=== PATIENT | male | born 1950 | race Caucasian/White ===

== ENCOUNTER 2021-01-28 05:33 | Outpatient (CLI) | payer MEDICARE, OTHER ==
[~2021-01-28] VITALS: Ht 175.3 cm; Wt 71.3 kg
[2021-01-29] MEDS ORDERED: VIT D PO (15:31)
[2021-01-29] MEDS ORDERED: EYE SUPPORT PO (15:31)
[2021-01-29] MEDS ORDERED: [UNRECOGNIZED DRUG - OTHER] PO (15:31)
[2021-01-29] MEDS ORDERED: CHOL500050 PO (15:31)
[2021-01-29] MEDS ORDERED: [UNRECOGNIZED DRUG - OTHER] PO (15:31)
[2021-01-29] MEDS ORDERED: CALC-803 PO (15:31)
[2021-01-29] MEDS ORDERED: [UNRECOGNIZED DRUG - OTHER] PO (15:31)
[2021-01-29] MEDS ORDERED: [UNRECOGNIZED DRUG - OTHER] PO (15:31)
[2021-01-29] MEDS ORDERED: LISI10TA25 PO (15:31)
[2021-01-29] MEDS ORDERED: [UNRECOGNIZED DRUG - OTHER] PO (15:31)
[2021-01-29] MEDS ORDERED: PROBIOTIC PO (15:31)
[2021-01-29] MEDS ORDERED: [UNRECOGNIZED DRUG - OTHER] PO (15:31)
[2021-01-29] MEDS ORDERED: [UNRECOGNIZED DRUG - OTHER] PO (15:31)
[2021-01-29] MEDS ORDERED: OMEGA PO (15:31)
[2021-01-29] MEDS ORDERED: TMSL.4C PO (15:39)
== END 2021-01-29 15:42 | disposition home or self-care (01) ==
LOC: PREOP 05:33
PROVIDERS: ATTEND Specialist
DX: Z01.818 Encounter for other preprocedural examination (principal)

== ENCOUNTER 2021-02-06 09:12 | Day surgery (SDC) | payer MEDICARE, OTHER ==
[~2021-02-06] VITALS: Ht 175.3 cm; Wt 71.3 kg
[2021-02-06] VITALS (11 sets, daily range): BP systolic 108–128; BP diastolic 65–94
[~2021-02-06 09:12] MED LIST: CALC-803 PO; CHOL500050 PO; EYE SUPPORT PO; LISI10TA25 PO; OMEGA PO; PROBIOTIC PO; TMSL.4C PO; VIT D PO; [UNRECOGNIZED DRUG - OTHER] PO; [UNRECOGNIZED DRUG - OTHER] PO; [UNRECOGNIZED DRUG - OTHER] PO; [UNRECOGNIZED DRUG - OTHER] PO; [UNRECOGNIZED DRUG - OTHER] PO; [UNRECOGNIZED DRUG - OTHER] PO; [UNRECOGNIZED DRUG - OTHER] PO
--- NOTE | 2021-02-06 09:22 | Progress Note-Pre Operative ---
Pre-Operative Progress Note H&P Reviewed The H&P was reviewed, patient examined and no changes noted. Date Seen by Provider: Feb 06, 2021 Time Seen by Provider: : Date H&P Reviewed: Feb 06, 2021 Time H&P Reviewed: :21 Pre-Operative Diagnosis: Prostate cancer cT2a, PSA 6.2, [place] 8 (4+4) JOAQUIN BARAKAT MD Feb 06, 2021 09:22
[2021-02-06] MEDS ORDERED: CIPR-226 PO ×2 (09:25)
[2021-02-06] MEDS ORDERED: ACET1TAB43 PO ×2 (09:25)
--- NOTE | 2021-02-06 09:30 | Discharge Inst-Simple/Standard ---
Discharge Inst-Standard Reconcile Patient Problems Problems Reviewed?: Yes Discharge Medications New, Converted or Re-Newed RX: Other (scripts has already been called to pharmacy in [place] 02/05) Patient Instructions/Follow Up Plan of Care/Instructions/FU: 1)Post implant ct scan at [facility] 03/06/21 at 11:00 a.m. 2)One month follow up with Dr. Veloz 03/06/21 at 1:30 p.m. Activity as Tolerated: Yes Discharge Diet: No Restrictions Other Inst to Patient Please instruct patient on galvez catheter care and self removal on Thursday02/11/21 in the morning. JOAQUIN BARAKAT MD Feb 06, 2021 09:30
[2021-02-06] MEDS ORDERED: BACITRACIN OINTMENT 28 GM TUBE ONE (09:51)
[2021-02-06] MEDS: LACTATED RINGERS 1,000 ML IV PRN ×2 (09:59→11:43)
[2021-02-06] MEDS ORDERED: LIDOCAINE PF 2% 5 ML (XYLOCAINE) VIAL ONE (10:51)
[2021-02-06] MEDS ORDERED: proPOfol 200 MG/20 ML (DIPRIVAN) VIAL IV ONE (10:51)
[2021-02-06] MEDS ORDERED: fentaNYL INJ 100 MCG/2 ML AMP ONE (10:51)
[2021-02-06] MEDS ORDERED: ONDANSETRON 4 MG/2 ML (SDV) Z0FRAN ONE (10:51)
[2021-02-06] MEDS ORDERED: SEVOFLURANE (ULTANE) 15 ML INHAL SOLN ONE ×2 (11:29→11:52)
[2021-02-06] MEDS ORDERED: PHENYLEPHRINE 100 MCG/ML 10 ML (ANESTHESIA) SYR ONE (11:36)
[2021-02-06] MEDS ORDERED: ONDANSETRON 4 MG/2 ML (SDV) Z0FRAN IVP PRN (12:15)
[2021-02-06] MEDS ORDERED: morphine INJ 10 MG/ML 1ML (SYR OR VIAL) IVP ONE (12:15)
--- NOTE | 2021-02-06 12:22 | Progress Note-Post Operative ---
Post-Operative Progess Note Surgeon (s)/Addiction Treatment Counselor (s) Surgeon JOAQUIN BARAKAT MD Addiction Treatment Counselor: Thuy KABA MD Pre-Operative Diagnosis Prostate cancer cT2a, PSA 6.2, [place] 8 (4+4) Post-Operative Diagnosis Same as pre op Procedure & Operative Findings Date of Procedure 02/06/21 Procedure Performed/Findings (1) 67% Cesium 131 permanent prostate seed implant (2) Injection of biodegradable hydrogel prostate-rectal spacer utilizing the [place] system (3) Cystogram Prostate volume 82.9 cc Anesthesia Type General Estimated Blood Loss Estimated blood loss (mL): Minimal Specimens/Packing Specimens Removed None Packing: None JOAQUIN BARAKAT MD Feb 06, 2021 12:22
--- NOTE | 2021-02-06 12:25 | Anesthesia-General Post-Op ---
General Patient Condition Mental Status/LOC: Same as Preop Cardiovascular: Satisfactory Nausea/Vomiting: Absent Respiratory: Satisfactory Pain: Controlled Complications: Absent Post Op Complications Complications None Follow Up Care/Instructions Patient Instructions None needed. Anesthesia/Patient Condition Patient Condition Patient is doing well, no complaints, stable vital signs, no apparent adverse anesthesia problems. ANNEL BEASLEY DO Feb 06, 2021 12:25
--- NOTE | 2021-02-06 12:58 | Diagnostic Imaging Report ---
INDICATION: Prostate cancer. TECHNIQUE: Single intraprocedural image of the prostate bed. FINDINGS/ IMPRESSION: The hospital radiology department provided fluoroscopic imaging in support of an interventional procedure. A radiologist was not present. Please reference the operating provider's procedure note. Fluoroscopy Time: 7.9 seconds. Dictated by: Dictated on workstation # [id number]
== END 2021-02-06 14:40 | disposition home or self-care (01) ==
LOC: SDC 09:12
PROVIDERS: ATTEND Radiology Radiation Oncology
DX: C61 Malignant neoplasm of prostate (principal); I10 Essential (primary) hypertension; E78.5 Hyperlipidemia, unspecified; E55.9 Vitamin D deficiency, unspecified; E78.00 Pure hypercholesterolemia, unspecified; F41.9 Anxiety disorder, unspecified; F32.9 Major depressive disorder, single episode, unspecified; Z80.0 Family history of malignant neoplasm of digestive organs; Z80.42 Family history of malignant neoplasm of prostate
CPT/HCPCS: 55874; 55876; 76000; 76965; 77290; 77318; 77332; 77370; 77470; 77778; 87081; C1715 ×2; C1889; C2643

== ENCOUNTER 2021-02-10 17:01 | Emergency (ER) | payer MEDICARE ==
[~2021-02-10] VITALS: Ht 175 cm; Wt 70.7 kg
[~2021-02-10 17:01] MED LIST changes: +ACET1TAB43 PO; +CIPR-226 PO
[2021-02-10 17:59] LABS: CLARITY,URINE CLOUDY; COLOR,URINE AMBER; GLUCOSE, URINE (UA) NEGATIVE (NEGATIVE); KETONES,URINE TRACE (NEGATIVE); LEUKOCYTE ESTERASE ,URINE TRACE (NEGATIVE); NITRITE,URINE NEGATIVE (NEGATIVE); PH,URINE 5.5 (5-9); PROTEIN,URINE 2+ (NEGATIVE)
[2021-02-10 18:07] LABS: BACTERIA,URINE TRACE /HPF; BILIRUBIN,URINE 1+ (NEGATIVE); RBC,URINE 50-100 /HPF
--- NOTE | 2021-02-10 18:28 | ED GU-Male ---
General Chief Complaint: Catheter/Drain/Tube Problems Stated Complaint: BURNING/LEAKAGE FROM CATHETER Nursing Triage Note: PT PRESENTS TO ED WITH COMPLAINTS OF BURNING AND LEAKING AROUND CATHETER. PT STATES PT HAD BRACHYTHERAPY THURSDAY AND SENT HOME WITH CATHETER. PT STARTED HAVING SOME DISCOMFORT THURSDAY MORNING. PT REPROTS CATHETER IS SUPPOSED TO BE REMOVED TOMORROW. Source: patient Exam Limitations: no limitations History of Present Illness Date Seen by Provider: Feb 10, 2021 Time Seen by Provider: 17:28 Initial Comments This is 70-year-old gentleman presents to the emergency room with complaints of pain and sense of urgency to urinate as well as leakage of bloody urine around his Bowen catheter after having had brachytherapy performed by Dr. Lassiter and Dr. Kaba on February 06. These symptoms started a couple of days ago after his believes she connected the catheter tubing incorrectly. She had it turned around in the catheter amount on his leg which caused tension on the catheter. The catheter is still draining but he is also having leakage around the catheter and out the meatus. His states this has been a significant amount. On exam there does not appear to be any active bleeding, inflammation, or leaking. His states she was instructed to pull the catheter herself tomorrow mo rning. Allergies and Home Medications Allergies Coded Allergies: No Known Drug Allergies (Unverified , 01/28/21) Patient Home Medication List Home Medication List Reviewed: Yes Acetaminophen with Codeine (Acetaminophen-Cod #3 Tablet) 1 Each Tablet, 1 EACH PO PRN PRN for PAIN-MODERATE (5-7) Prescribed by: JOAQUIN LASSITER on 02/06/21 09 Calcium Carb &Cit/Magnesium Ox (Calmag Thins Tablet) 1 Each Tablet, 1-2 EACH PO BID, (Reported) Entered as Reported by: GERSON SCOTT on 01/29/211530 Cholecalciferol (Vitamin D3) (Vitamin D3) 125 Mcg Capsule, 125 MCG PO DAILY, (Reported) Entered as Reported by: GERSON SCOTT on 01/29/211530 Ciprofloxacin HCl (Cipro) 250 Mg Tablet, 250 MG PO BID Prescribed by: JOAQUIN LASSITER on 02/06/21924 Lisinopril (Lisinopril) 10 Mg Tablet, 10 MG PO DAILY, (Reported) Entered as Reported by: GERSON SCOTT on 01/29/211530 Tamsulosin HCl (Flomax) 0.4 Mg Cap, 0.4 MG PO HS, (Reported) Entered as Reported by: GERSON SCOTT on 01/29/211538 [[place]-Immune] , 1 PKT PO DAILY, (Reported) Entered as Reported by: GERSON SCOTT on 01/29/211530 [Cardio Balance] , 1 CAP PO DAILY, (Reported) Entered as Reported by: GERSON SCOTT on 01/29/211530 [Curamed Brain] , 1 CAP PO DAILY, (Reported) Entered as Reported by: GERSON SCOTT on 01/29/211530 [Eye Support] , 1 CAP PO DAILY, (Reported) Entered as Reported by: GERSON SCOTT on 01/29/211530 [Gi Pre & Probiotic] , 1 PKT PO DAILY, (Reported) Entered as Reported by: GERSON SCOTT on 01/29/211530 [Glyco-Antioxidant] , 1 CAP PO DAILY, (Reported) Entered as Reported by: GERSON SCOTT on 01/29/211530 [Her/Amino Acid] , 1 CAP PO DAILY, (Reported) Entered as Reported by: GERSON SCOTT on 01/29/211530 [Nutri-Supp] , 1 PKT PO DAILY, (Reported) Entered as Reported by: GERSON SCOTT on 01/29/211530 [[place] 3 W/Vit D] , 1 CAP PO DAILY, (Reported) Entered as Reported by: GERSON SCOTT on 01/29/211530 Review of Systems Review of Systems Constitutional: no symptoms reported EENTM: no symptoms reported Respiratory: no symptoms reported Cardiovascular: no symptoms reported Gastrointestinal: no symptoms reported Genitourinary: see HPI Musculoskeletal: no symptoms reported Skin: no symptoms reported Psychiatric/Neurological: No Symptoms Reported Endocrine: No Symptoms Reported Hematologic/Lymphatic: No Symptoms Reported Past Yxosyrx-Osgxau-Cjzppz Hx Patient Social History Tobacco Use?: No Substance use?: No Alcohol Use?: No Pt feels they are or have been: No Immunizations Up To Date First/Initial COVID19 Vaccinat: JULY 26, 2020 Second COVID19 Vaccination Manuel: AUGUST 17, 2020 COVID19 Vaccine Emergency Response Technician: JACINTA Seasonal Allergies Seasonal Allergies: No Past Medical History Surgery/Hospitalization HX: PMH: HTN, PROSTATE CA SX: PROSTATE BIOPSY, BRACHYTHERAPY, HERNIA REPAIR. Surgeries: Yes (PROSTATE BIOPSY, COLONOSCOPY, INGUINAL HERNIA REPAIR, brachytherapy) Abdominal Respiratory: No Currently Using CPAP: No Currently Using BIPAP: No Cardiac: Yes High Cholesterol, Hypertension Neurological: Yes (FORGETFULLNESS, POSSIBLE DEMENTIA (?)) Genitourinary: Yes Benign Prostatic Hyperpl, Prostate Problems Gastrointestinal: No Musculoskeletal: No Endocrine: No HEENT: Yes (WEARS READING GLASSES) Loss of Vision: Denies Hearing Impairment: Denies Cancer: Yes (CURRENT) Prostate Did You Recieve Any Treatments: Yes What Type of Treatment Did You: Radiation (Brachytherapy) Psychosocial: Yes Anxiety Integumentary: No Blood Disorders: No Adverse Reaction/Blood Tranf: No (N/A) Physical Exam Vital Signs Vital Signs - First Documented 02/10/21 17:19 Temp 36.6 Pulse 96 Resp 18 B/P (MAP) 137/92 (107) Pulse Ox 99 Capillary Refill : Less Than 3 Seconds Height, Weight, BMI Height: '" Weight: lbs. oz. kg; 23.00 BMI Method: General Appearance: WD/WN, no apparent distress HEENT: normal ENT inspection Neck: normal inspection Cardiovascular: regular rate, rhythm, no edema, no murmur Respiratory: lungs clear, normal breath sounds, no respiratory distress Gastrointestinal: normal bowel sounds, non tender, soft; No distended Extremities: normal inspection, no pedal edema Neurologic/Psychiatric: no motor/sensory deficits, alert, normal mood/affect Skin: normal color, warm/dry Progress/Results/Core Measures Suspected Sepsis SIRS Temperature: Pulse: 96 Respiratory Rate: 18 Blood Pressure 137 /92 Mean: 107 Results/Orders Lab Results Laboratory Tests Test 02/10/21 17:55 Range/Units Urine Color [place] H Urine Clarity CLOUDY Urine pH 5.5 5-9 Urine Specific [place] >=1.030 1.016-1.022 Urine Protein 2+ H NEGATIVE Urine Glucose (UA) NEGATIVE NEGATIVE Urine Ketones TRACE H NEGATIVE Urine Nitrite NEGATIVE NEGATIVE Urine Bilirubin 1+ H NEGATIVE Urine Urobilinogen 0.2 < = 1.0 MG/DL Urine Leukocyte Esterase TRACE H NEGATIVE Urine RBC (Auto) 3+ H NEGATIVE Urine RBC 50-100 H /HPF Urine WBC 5-10 H /HPF Urine Squamous Epithelial Cells NONE /HPF Urine Crystals NONE /LPF Urine Bacteria TRACE /HPF Urine Casts NONE /LPF Urine Mucus NEGATIVE /LPF Urine Culture Indicated YES Micro Results Microbiology 02/10/21 Urine Culture - Final, Complete NO GROWTH My Orders Orders - BEAU VASQUEZ MD Ua Culture If Indicated (02/10/21 17:28) Urine Culture (02/10/21 17:55) Vital Signs/I&O 02/10/21 02/10/21 17:19 18:32 Temp 36.6 36.6 Pulse 96 96 Resp 18 18 B/P (MAP) 137/92 (107) 137/92 Pulse Ox 99 98 Capillary Refill : Less Than 3 Seconds Blood Pressure Mean: 107 Progress Note : Progress Note The situation was discussed with Dr. Kaba. He encouraged irrigation of the catheter. If no clots were noted and the catheter flushed well, he stated the catheter could be safely removed. The catheter was flushed twice with 60 mL of sterile saline with no difficulty. There was minimal blood associated with flushing of the catheter. Catheter was removed without complication. Uri nalysis demonstrated pyuria without significant bacteriuria. No antibiotics were prescribed. Treatment will be pending culture. Departure Impression Primary Impression: Bowen catheter problem Qualified Codes: T83.9XXA - Unspecified complication of genitourinary prosthetic device, implant and graft, initial encounter Additional Impression: Prostate cancer Disposition: HOME, SELF-CARE Condition: Improved Departure-Patient Inst. Decision time for Depature: 17:45 Referrals: MONTY RAMOS MD (PCP) Primary Care Physician Thuy KABA MD (Family) Primary Care Physician Patient Instructions: Brachytherapy Add. Discharge Instructions: Drink plenty of clear liquids and urinate often. You should drink enough liquids so that your urine is light yellow to clear in color. Otherwise follow postoperative instructions as provided after your brachytherapy. Follow-up with your urologist and primary care provider as previously instructed. Call with questions or concerns. Your urine will be cultured at this facility. If you do not hear results on your urine culture by Thursday, feel free to call to obtain the results. Return to the ER if you have urgent medical needs or concerns. All discharge instructions reviewed with patient and/or family. Voiced understanding. Copy Copies To 1: Thuy KABA MD; JOAQUIN LASSITER MD Copies To 2: MANZER,BEAU BENITO MD, MD Feb 10, 2021 18:28
[2021-02-10 18:32] VITALS: BP 137/92
== END 2021-02-10 18:33 | disposition home or self-care (01) ==
LOC: EDUNIT# 17:01 → ER 17:02
DX: C61 Malignant neoplasm of prostate (principal); T83.098A Other mechanical complication of other urinary catheter, initial encounter; I10 Essential (primary) hypertension; N40.0 Benign prostatic hyperplasia without lower urinary tract symptoms; Z79.899 Other long term (current) drug therapy
CPT/HCPCS: 81000; 87088; 99282

== ENCOUNTER 2021-03-06 10:52 | Outpatient (RCR) | payer MEDICARE, OTHER | END 2021-03-10 | disposition home or self-care (01) | LOC: ONC 10:52 | PROVIDERS: ATTEND Radiology Radiation Oncology | DX: Z51.0 Encounter for antineoplastic radiation therapy (principal); C61 Malignant neoplasm of prostate; I10 Essential (primary) hypertension; E78.00 Pure hypercholesterolemia, unspecified; Z80.42 Family history of malignant neoplasm of prostate | CPT/HCPCS: 76873; G0463; 77290; 99205 ==

== ENCOUNTER 2021-03-12 11:12 | Outpatient (RCR) | payer MEDICARE | END 2021-04-26 | disposition home or self-care (01) | LOC: ONC 11:12 | PROVIDERS: ATTEND Radiology Radiation Oncology | DX: Z51.0 Encounter for antineoplastic radiation therapy (principal); C61 Malignant neoplasm of prostate; I10 Essential (primary) hypertension; E78.00 Pure hypercholesterolemia, unspecified; E55.9 Vitamin D deficiency, unspecified; F41.9 Anxiety disorder, unspecified; Z80.42 Family history of malignant neoplasm of prostate | CPT/HCPCS: 77295; 84153 ==

== ENCOUNTER → 2021-05-27 | Outpatient (RCR) | payer MEDICARE | END | disposition home or self-care (01) | LOC: ONC 04-29 12:23 | PROVIDERS: ATTEND Radiology Radiation Oncology | DX: Z51.0 Encounter for antineoplastic radiation therapy (principal); C61 Malignant neoplasm of prostate | CPT/HCPCS: 77300; 77301; 77334; 77336; 77338; 77385 ==

== ENCOUNTER 2021-05-31 07:47 | Outpatient (RCR) | payer MEDICARE | END 2021-06-24 | disposition home or self-care (01) | LOC: ONC 07:47 | PROVIDERS: ATTEND Radiology Radiation Oncology | DX: Z51.0 Encounter for antineoplastic radiation therapy (principal); C61 Malignant neoplasm of prostate | CPT/HCPCS: 77385; G0463; 77336 ==

== ENCOUNTER 2021-07-18 09:46 | Outpatient (RCR) | payer MEDICARE | END 2021-07-25 | disposition home or self-care (01) | LOC: ONC 09:46 | PROVIDERS: ATTEND Radiology Radiation Oncology | DX: C61 Malignant neoplasm of prostate (principal) | CPT/HCPCS: G0103; G0463; 84153; 99213 ==

== ENCOUNTER 2022-01-23 09:20 | Outpatient (RCR) | payer MEDICARE ==
[~2022-01-23 09:20] MED LIST changes: +ACET-11 PO; -ACET1TAB43 PO
== END 2022-01-24 ==
LOC: ONC 09:20
PROVIDERS: ATTEND Radiology Radiation Oncology
DX: C61 Malignant neoplasm of prostate (principal)
CPT/HCPCS: G0103; G0463; 36415; 84153; 99213